=== PATIENT | male | born 1955 | race Two or more races ===

== ENCOUNTER 2025-03-14 08:17 | Outpatient (CLI) | payer OTHER, MEDICAID ==
[2025-03-14] MEDS ORDERED: ALBUTEROL SULF 2.5 MG/0.5ML(0.5%) NEB SOLN ONE (08:35)
== END 2025-03-14 17:00 | disposition home or self-care (01) ==
LOC: RT 08:17
PROVIDERS: ATTEND Internal Medicine Pulmonary Disease
DX: J44.9 Chronic obstructive pulmonary disease, unspecified (principal); F17.210 Nicotine dependence, cigarettes, uncomplicated
CPT/HCPCS: 94060; 94727; 94729